=== PATIENT | male | born 1955 | race Caucasian/White ===

== ENCOUNTER 2021-09-25 14:20 | Emergency (ER) | payer MEDICARE, OTHER, SELFPAY ==
--- NOTE | ~2021-09-25 | XR_ITS ---
EXAMINATION: XR FINGER, LEFT CLINICAL INFORMATION: Lingular base of third finger. Rule out foreign body. COMPARISON: None TECHNIQUE: Three views of the left third. FINDINGS: Bone alignment is normal. No fracture or dislocation is seen. The joint spaces are normal. There is soft tissue swelling adjacent to the volar proximal phalanx of the third finger. No radiopaque soft tissue foreign body. XR/XR finger LT min 2V IMPRESSION: Soft tissue swelling adjacent to the volar proximal phalanx of the third finger. No foreign body seen.
[2021-09-25 14:42] VITALS: BP 155/84; PULSE 90; RESP 18; TEMP 36.8; O2SAT 97; BMI 24.3
--- NOTE | 2021-09-25 16:32 | ED.SKABFB ---
HPI - Skin/Abscess/Foreign Bdy General Chief complaint: Skin/Abscess/Foreign Body Stated complaint: splinter lodged in finger ?inf Time Seen by Provider: 09/25/21 16:10 Source: patient Mode of arrival: ambulatory Limitations: no limitations History of Present Illness HPI narrative: 66-year-old male here with complaints of foreign body to the left hand middle digit. patient tells me he was working with pressure treated work about 1 week ago on a splinter went into the digit. he removed part of it but feels like part of it broke off. he went to a walk-in urgent care and they placed him on antibiotic. patient here with continued pain and swelling over the site. no fevers or chills. he is right-hand dominant Related Data Allergies Allergy/AdvReac Type Severity Reaction Status Date / Time No Known Allergies Allergy Verified 09/25/21 14:42 Review of Systems Review of Systems: Yes all other systems are reviewed and are negative Constitutional: Constitutional: Reports no additional constitutional complaints, Denies body ache(s), Denies chills, Denies fever(s), Denies headache(s) and Denies weakness Eyes: Eyes: Reports no additional eye complaints and Denies change in vision ENT: Reports system reviewed and no additional complaints, except as documented, Denies dizziness, Denies headache(s), Denies nasal congestion, Denies nasal discharge and Denies neck pain Cardiovascular: Cardiovascular: Reports no additional cardiovascular complaints, Denies chest pain, Denies leg edema and Denies dyspnea Respiratory: Respiratory: Reports no additional respiratory complaints, Denies cough and Denies dyspnea Gastrointestinal: Gastrointestinal: Reports no additional gastrointestinal complaints, Denies abdominal pain, Denies diarrhea, Denies nausea and Denies vomiting Genitourinary: Genitourinary: Denies urinary incontinence Musculoskeletal: Musculoskeletal: Reports no additional musculoskeletal complaints, Denies back pain, Denies arthralgias, Denies joint swelling, Denies neck pain, Denies numbness and Denies tingling Integumentary/Breasts: Skin/Breast: Reports system reviewed and no additional complaints, except as docu, Reports swelling and Denies rash Neurologic: Reports system reviewed and no additional complaints, except as documented, Denies Abnormal speech present, Denies dizziness, Denies headache(s), Denies numbness, Denies tingling and Denies weakness [facility] Past Medical History Attestation statement: The following information was validated with the patient. Source: old records reviewed and nursing notes reviewed Medical History High blood cholesterol HTN (hypertension) Social History Social History Advance Directives: No Advance Directives Information Provided: No Physical Exam Vital Signs: Vital Signs: Last Vital Signs Temp 98.3 F 09/25/21 14:42 Pulse 90 09/25/21 14:42 Resp 18 09/25/21 14:42 BP 155/84 H 09/25/21 14:42 Pulse Ox 97 09/25/21 14:42 Body Mass Index 24.3 Const: General: cooperative, healthy appearing, comfortable and no acute distress Orientation/consciousness: patient oriented x3 Limitations: no limitations HENMT: Head: Yes normal to inspection Ears: hearing grossly normal bilaterally General nose exam: Normal external nose present Face and sinus: Yes normal facial exam Mouth: Normal oral and palatal mucosa present Throat: Yes posterior oropharynx normal Eyes: General: appearance normal, both eyes and all related structures Pupils: Equal, round and reactive pupils present Neck: Neck: Yes normal visual inspection Chest: Chest palpation & inspection: normal inspection of the chest Resp: Effort & Inspection: normal respiratory effort Auscultation: clear to auscultation bilaterally Cardio: Rate: regular rate Rhythm: regular rhythm Peripheral pulses: Peripheral pulses 2+ throughout GI: Inspection: Yes normal to inspection Palpation (GI): Soft to palpation and nontender Auscultation: normal bowel sounds Back/Spine/Pelvis: Thoracic/Lumbar Spine: thoracic and lumbar spine normal to inspection Skin: General skin exam: no rashes or lesions noted Neuro: General: patient oriented x3, no focal motor deficits and normal sensation to monofilament Cranial nerves: Yes Equal, round and reactive pupils present Cognition (Neuro): normal cognition Speech: No Abnormal speech present Gait exam (Neuro): Normal gait present Motor exam (neuro): 5/5 motor strength present throughout Extrem: Other: Palpable FB with tenderness. No warmth, redness, fluctuance or induration of digit with FROM. General: Yes normal to inspection Course Course Course Narrative: 66 yo male right hand dominant here with concern for FB to left hand middle digit from a piece of pressure treated wood 1 week ago. On oral antibiotics with continued pain, swelling and sensation of FB. X-ray ordered from triage does not show any foreign body which is not surprising as wood is not a radio-opaque object. I can palpate what feels like an edge of a FB. There is some local swelling and tenderness as well at the site with no sign of infection on exam. The object does not feel superficial and I discussed with the patient that there are vascular and tendon structures located near there. This is best to be done by a hand surgeon. Spoke to Maynor TERRAZAS and they will follow in office as Dr Gómez is working /Tue. Reviewed worrisome signs/symptoms with patient and when to seek additional care. Comfortable with plan for discharge home. MDM - Skin/Abscess/Foreign Bdy Medical Records Attestation: I reviewed the patient's medical records. Lab Data Attestation: I reviewed the patient's lab results. Imaging Data finger x-ray: Attestation: I personally reviewed and interpreted this imaging study as follows: Radiologist's impression: [address] [address] XRay Report Signed Patient: Singh Baker MR#: [id number] : 1955 Acct:[id number] Age/Sex: 66 / M ADM Date: 09/25/21 Loc: .ED Attending Dr: Ordering Physician: Generic ED Physician Date of Service: 09/25/21 Procedure(s): XR finger LT min 2V Accession Number(s): [id number] cc: Generic ED Physician~ EXAMINATION: XR FINGER, LEFT CLINICAL INFORMATION: Lingular base of third finger. Rule out foreign body.? COMPARISON: None? TECHNIQUE: Three views of the left third. FINDINGS: Bone alignment is normal. No fracture or dislocation is seen. The joint spaces are normal. There is soft tissue swelling adjacent to the volar proximal phalanx of the third finger. No radiopaque soft tissue foreign body.? XR/XR finger LT min 2V IMPRESSION: Soft tissue swelling adjacent to the volar proximal phalanx of the third finger. No foreign body seen. ? Discharge Plan Discharge Clinical Impression: Foreign body (FB) in soft tissue Patient Disposition: Home, Self-Care Instructions: Soft Tissue Foreign Body (ED) Additional Instructions: Warm soaks four times daily Call orthopedics Tuesday Referrals: Tiffanie Gómez MD [Physician] - 2 days Interventions: ED Discharge Assessment Last Done: 09/25/21 16:53 Discharge Date/Time: 09/25/21 16:54
== END 2021-09-25 16:54 | disposition home or self-care (01) ==
LOC: HO.ED 16:44
PROVIDERS: Emergency Provider Emergency Medicine; PCP Physician Assistant Medical
DX: M79.5 Residual foreign body in soft tissue (principal); M79.89 Other specified soft tissue disorders
CPT/HCPCS: 73140; 99282; 99283

== ENCOUNTER → 2021-09-29 09:43 | Outpatient (BNVA) | payer MEDICARE, SELFPAY | PROVIDERS: Visit Provider Orthopaedic Surgery | DX: S60.459A Superficial foreign body of unspecified finger, initial encounter (principal) | CPT/HCPCS: 99202 ==

== ENCOUNTER 2021-09-30 07:57 | Day surgery (SDC) | payer MEDICARE, SELFPAY ==
[2021-09-30 08:23] VITALS: BP 149/71; PULSE 74; RESP 16; TEMP 36.7; O2SAT 96; BMI 24.3
[2021-09-30 10:43] VITALS: BP 151/81; PULSE 66; RESP 18; TEMP 36.9; O2SAT 96
--- NOTE | 2021-10-12 15:49 | P.OP_ITS ---
Operative Note Operative Note Date of Service: 09/30/21 Narrative: Pre-op diagnosis: Left long finger foreign bocy Post-op diagnosis: same Procedure: Removal of foreign body left long finger Surgeon: Robert Cantrell MD Anesthesia: local Was an Purifying Plant Operator used for this Procedure?: No Estimated blood loss (mL): 5 IV fluids (mL): 0 Pathology: other Condition: stable Disposition: PACU Procedure in detail: Patient brought the operating room placed supine on the hand table and prepped and draped in standard sterile fashion. Time-out was called to identify proper site procedure proper surgeon. I began by injecting about 8 mL of 0.25% Marcaine over the digital nerves of the left long finger. I then began by making a sub cm celina incision over the volar aspect of the left long finger. This was adjacent to the entry site of a suppose it foreign body. After manipulation and some squeezing a 1.5 cm long splinter was easily removed from volar skin. This was midline and not adjacent to the neurovascular structures. I then irrigated copiously and let the wound close with secondary closure.
== END 2021-09-30 10:54 | disposition home or self-care (01) ==
PROVIDERS: PCP Physician Assistant Medical; Visit Provider Orthopaedic Surgery
PROC: (CPT 10120; principal; 2021-09-30 09:30)
DX: S60.453A Superficial foreign body of left middle finger, initial encounter (principal); X58.XXXA Exposure to other specified factors, initial encounter; Y93.H3 Activity, building and construction; Y92.009 Unspecified place in unspecified non-institutional (private) residence as the place of occurrence of the external cause; Y99.8 Other external cause status; E78.00 Pure hypercholesterolemia, unspecified; I10 Essential (primary) hypertension; R73.03 Prediabetes
CPT/HCPCS: 10120